=== PATIENT | female | born 1975 | race Caucasian/White ===

== ENCOUNTER 2019-01-08 21:35 | Emergency (ER) | payer MEDICAID ==
[2019-01-08 21:52] VITALS: BP 106/82; PULSE 82; O2SAT 100
[2019-01-08] MEDS ORDERED: XYLOCAINE 1% HCL 20 ML MDV ONE (21:59)
[2019-01-08] MEDS ORDERED: XYLOCAINE 1% HCL 20 ML MDV IJ ONE (21:59)
--- NOTE | 2019-01-08 22:04 | ERPHSYRPT ---
- History of Present Illness Time Seen by Provider: 01/08/19 21:40 Source: patient Exam Limitations: no limitations Patient Subjective Stated Complaint: pt states she was wrestling with her 23 year old son and he twisted her finger of her right ring finger. Triage Nursing Assessment: pt alert and oriented, rates pain as 09/05 Physician History: Patient injured her right ring finger when it was twisted by her son one hour prior to coming into the emergency department. Occurred: hours ago (1) Method of Injury: twisted Quality: constant Severity of Pain-Max: severe Severity of Pain-Current: severe Extremities Pain Location: 4th finger: right Modifying Factors: Improves With: immobilization, rest. Worsens With: movement Associated Symptoms: No back pain, No chills, No chest discomfort, No chest pain , No dyspnea, No fever, No jaw pain, No nausea, No neck pain, No sweating, No short of breath, No vomiting Allergies/Adverse Reactions: No Known Drug Allergies Allergy (Unverified 01/08/19 21:52) - Review of Systems Constitutional: No Fever, No Chills Eyes: No Eye Pain, No Vision Changes Ears, Nose, & Throat: No Epistaxis, No Painful Swallowing Respiratory: No Cough, No Dyspnea Cardiac: No Chest Pain, No Edema, No Syncope Abdominal/Gastrointestinal: No Abdominal Pain, No Nausea, No Vomiting Genitourinary Symptoms: No Flank Pain Musculoskeletal: No Back Pain, No Neck Pain, No Myalgias Skin: No Rash Neurological: No Dizziness, No Focal Weakness, No Sensory Changes Psychological: No Symptoms Endocrine: No Symptoms Hematologic/Lymphatic: No Easy Bleeding, No Easy Bruising All Other Systems: Reviewed and Negative - Past Medical History Pertinent Past Medical History: No - Past Surgical History Other Surgical History: gastric bypass - Social History Smoking Status: Current every day smoker How long have you smoked: 20 Drug Use: none Patient Lives Alone: No - Female History Hx Now: No - Nursing Vital Signs Nursing Vital Signs: Initial Vital Signs Temperature 97.3 F 01/08/19 21:39 Pulse Rate 82 01/08/19 21:39 Respiratory Rate 18 01/08/19 21:39 Blood Pressure 106/82 01/08/19 21:39 O2 Sat by Pulse Oximetry 100 01/08/19 21:39 Pain Scale Pain Intensity [] 7 Pain Intensity 7 - Physical Exam General Appearance: no apparent distress, alert Eyes, Ears, Nose, Throat Exam: pharynx normal, moist mucous membranes Neck Exam: normal inspection, non-tender, supple, full range of motion Cardiovascular/Respiratory Exam: chest non-tender, normal breath sounds, regular rate/rhythm, heart sounds normal, no M/R/G, no respiratory distress Abdominal Exam: non-tender, No guarding, No tenderness Back Exam: normal inspection, No vertebral tenderness Shoulder Exam: normal inspection, non-tender, no evidence of injury, normal ROM , No bone tenderness Elbow/Forearm Exam: normal inspection, non-tender, no evidence of injury, normal ROM, No bone tenderness Wrist Exam: normal inspection, non-tender, no evidence of injury, normal ROM, No bone tenderness Hand Exam: bone tenderness (right 4th digit only), deformity (right 4th digit only), limited ROM (right 4th digit only), No abrasions, No laceration DTR - Upper Extremity Exam: tricep (R): 2+, tricep (L): 2+ Neuro/Tendon Exam: normal sensation, normal motor functions, No sensory deficit Mental Status Exam: alert, oriented x 3, cooperative Skin Exam: normal color, warm, dry, No rash, No cyanosis SpO2 Interpretation: normal SpO2: 100 O2 Delivery: Room Air Procedures - Splinting Location of Splint: Right, Hand Type of Splint: Orthoglass Finger Splint (ulnar gutter splint) Splint Applied By: ED Nurse (with ED physician) Pre-Proc Neuro Vasc Exam: normal Post-Proc Neuro Vasc Exam: neurovascular intact - Course Nursing assessment & vital signs reviewed: Yes - Radiology Exams Right Hand X-ray Interpretation: Interpreted by me, Reviewed by me, Other (fourth digit proximal phalanx comminuted, spiral mid shaft fracture with angulation; no other fractures or dislocations) Ordered Tests: Active Orders 24 hr Category Date Time Status Splint STAT Care 01/08/19 22:12 Ordered HAND (MINIMUM 3 VIEWS) Stat Exams 01/08/19 21:42 Ordered Medication Summary Discontinued Medications Generic Name Dose Route Start Last Admin Trade Name Freq PRN Reason Stop Dose Admin Lidocaine HCl 10 ml 01/08/19 21:59 01/08/19 22:09 Xylocaine 1% Hcl 20 Ml Mdv IJ 01/08/19 22:00 10 ml STAT ONE Administration Lidocaine HCl Confirm 01/08/19 21:59 Xylocaine 1% Hcl 20 Ml Mdv Administered 01/08/19 22:00 Dose 5 ml .ROUTE .STK-MED ONE - Progress Progress: improved Progress Note: 01/08/19 22:13 Pain control achieved with right fourth finger digital block performed under aseptic technique using 1% Lidocaine plain, 6cc total. Counseled pt/family regarding: diagnosis, need for follow-up, rad results - Departure Departure Disposition: Home Clinical Impression: Closed fracture of proximal phalanx of ring finger Qualifiers: Encounter type: initial encounter Fracture alignment: displaced Laterality: right Qualified Code(s): S62.614A - Displaced fracture of proximal phalanx of right ring finger, initial encounter for closed fracture Condition: Good Critical Care Time: No Referrals: SUE COELLO MD [NON-STAFF PHY W/O PRIVILEGES] - 01/09/19 (Orthopedic Hand Surgeon in [place], [place] to follow-up) Instructions: Finger Fracture (DC), Cast Care Additional Instructions: You have a broken finger on the right fourth digit, also known as a ring finger. It is important to followup with orthopedic surgery so they can give you further treatment options with this. Your doctor may have an orthopedic surgeon they prefer to use, but you also have one on your discharge instructions. Use the splint until cleared by orthopedic surgery. Take off the splint if any discoloration, numbness or loss of function to your finger. Otherwise, keep your splint on at all times and cover when in the shower. Forms: Work/School Release Form Prescriptions: Etodolac 400 mg [Lodine 400 mg] 400 mg PO BID PRN PRN #20 tablet PRN Reason: Pain
--- NOTE | 2019-01-09 08:48 | XRAY ---
Indication: 4th finger pain following trauma. Comparison: None 3 views of the right hand demonstrates minimally angulated oblique fracture shaft 4th proximal phalanx with soft tissue swelling. No other bony, articular, or soft tissue abnormalities.
== END 2019-01-08 22:45 | disposition home or self-care (01) ==
LOC: ED 21:35
DX: S62.614A Displaced fracture of proximal phalanx of right ring finger, initial encounter for closed fracture (principal); W50.2XXA Accidental twist by another person, initial encounter; Y93.72 Activity, wrestling; Y92.9 Unspecified place or not applicable; Y99.9 Unspecified external cause status
CPT/HCPCS: 73130; 96372; 99284